=== PATIENT | female | born 1950 | race Caucasian/White ===

== ENCOUNTER 2017-09-28 07:36 | Day surgery (SDC) | payer MEDICARE ==
[2017-09-27 13:07] VITALS: BMI 25.4
[2017-09-28] MEDS ORDERED: Oxymetazoline HCl 0.05% ( 15 ML ) ONE ×2 (09:27→10:11)
[2017-09-28] MEDS ORDERED: Scopolamine 1.5 mg/72 hour Patch ONE (09:48)
[2017-09-28 09:50] LABS: Hemoglobin 12.6 g/dL (12.0-16.0)
[2017-09-28 10:02] LABS: Anion Gap 11 mmol/L (10-20); BUN (Urea Nitrogen) 14 mg/dL (9.8-20.1); Calc. Creatinine Clearance 64 mL/min (70-130); Calcium 9.1 mg/dL (7.8-10.44); Carbon Dioxide 29 mmol/L (23-31); Chloride 105 mmol/L (98-107); Estimated GFR-MDRD 64; Glucose 88 mg/dL (80-115); Potassium 3.8 mmol/L (3.5-5.1); Sodium 141 mmol/L (136-145)
[2017-09-28] MEDS ORDERED: Lidocaine 1% w/Epinephrine 1:200K 30 ML VIAL ONE (10:10)
[2017-09-28] MEDS ORDERED: Bacitracin Zinc Ointment 30 gm TUBE ONE (10:11)
[2017-09-28] MEDS ORDERED: Fentanyl 100 MCG/2 ML VIAL ONE ×2 (10:17→11:40)
[2017-09-28] MEDS ORDERED: Fentanyl 250 MCG/5 ML VIAL ONE (10:18)
[2017-09-28] MEDS ORDERED: Hydrocodone-Acetamin 15 ML UDCUP ONE (13:47)
[2017-09-28] MEDS ORDERED: Dexamethasone 20 MG/5 ML VIAL ONE (16:15)
[2017-09-28] MEDS ORDERED: Propofol 200 MG/20 ML VIAL ONE (16:15)
[2017-09-28] MEDS ORDERED: Lidocaine 1% PF 5 ML VIAL ONE (16:15)
[2017-09-28] MEDS ORDERED: Ondansetron HCl/PF 4 MG/2 ML Vial ONE (16:15)
--- NOTE | 2017-09-28 19:05 | EKG ---
Test Reason : PREOP Blood Pressure : / mmHG Vent. Rate : 072 BPM Atrial Rate : 072 BPM P-R Int : 146 ms QRS Dur : 080 ms QT Int : 410 ms P-R-T Axes : 028 028 047 degrees QTc Int : 448 ms Normal sinus rhythm Nonspecific ST abnormality Abnormal ECG No previous ECGs available Confirmed by DR. Azeb GILL ([id number]) on 09/28/2017 7:05:02 PM Referred By: Heidi SABA Confirmed By:DR. Azeb GILL
--- NOTE | 2017-09-29 14:57 | OP ---
DATE OF PROCEDURE: 09/28/2017 PREOPERATIVE DIAGNOSES: 1. Chronic rhinosinusitis. 2. Allergic fungal sinusitis. 3. Bilateral inferior turbinate hypertrophy. 4. Nasal obstruction. POSTOPERATIVE DIAGNOSES: 1. Chronic rhinosinusitis. 2. Allergic fungal sinusitis. 3. Bilateral inferior turbinate hypertrophy. 4. Nasal obstruction. PROCEDURES: 1. Bilateral endoscopic sinus surgery, total ethmoidectomies. 2. Bilateral endoscopic sinus surgery, maxillary antrostomies. 3. Bilateral endoscopic sinus surgery, frontal sinusotomies. 4. Bilateral endoscopic sinus surgery, sphenoidotomies. 5. Bilateral inferior turbinate submucosal resection. SURGEON: Lazaro Mckeon M.D. ESTIMATED BLOOD LOSS: 50 mL COMPLICATIONS: None. ANESTHESIA: GETA. DESCRIPTION OF PROCEDURE: The patient was taken to the operating room and placed supine on table. G eneral endotracheal anesthesia was obtained by the Anesthesia staff. Tube was secured in the left lo wer lip. The patient was placed in the beach chair position. Afrin pledgets placed in the nose. Fo llowing this, the patient was prepped and draped for standard nasal procedure. Afrin pledgets were r emoved. 0 degree endoscope was advanced in the nasal cavity. 1% lidocaine with 1:100,000 epinephrin e was injected via a 27-gauge needle in the inferior turbinates, middle turbinates and lateral nasal wall bilaterally. Following this, the 0 degree scope was advanced into the nasal cavity. The middle turbinates were gently medialized and the uncinate process was identified bilaterally. Following th is, the uncinate process was anteriorly fractured using ball-ended probe and it was removed bilateral ly using the straight microdebrider and upbiting Blakesley forceps. Following this, the ball-ended p robe was used to gently palpate and identify the natural maxillary sinus ostia. This area was then w idened using a straight Blakesley forceps and the microdebrider. Following this, the ethmoidal bulla was identified and was punctured on its medial and inferior aspect and was removed using the microde brider. Following this, the grand lamella was identified and was punctured into the posterior ethmoi mally cells. Working from posterior to anterior, the ethmoidal cells were opened in a mucosal-sparing technique. Through the previous ethmoidectomies, the sphenoidotomies were then created bilaterally. The attachment of the superior turbinate to the posterior nasal wall was identified. Staying just m edial and inferior this, the sphenoid sinus ostia was punctured using the 0 degree microdebrider and sphenoidotomies were created medially and inferiorly with the microdebrider. Following this, the 45 degree scope and the upbiting microdebrider were used to further open the frontal recess cells as wel l to visualize the natural frontal sinus ostia. On the left side, there is allergic fungal debris an d mucin that was impacted into the entire left frontal sinus. frontal sinus ostia were widened using the 40 degree microdebrider. The straight curved suctions were used to irrigate and suction a ll fungal debris from the frontal sinus area. Following this, inferior turbinates were punctured on the anterior and inferior aspect with the submucosal microdebrider and submucosal resection was perfo rmed bilaterally. Following this, the nasal cavity was irrigated. Meropacks were placed in the midd le meatus. The patient tolerated the procedure well.
[2017-10-01 14:16] LABS: Fungus Stain Final report (.)
== END 2017-09-28 14:20 | disposition home or self-care (01) ==
LOC: SDC 07:36
PROVIDERS: ATTEND Otolaryngology Plastic Surgery within the Head & Neck
PROC: 09TL8ZZ Resection of Nasal Turbinate, Via Natural or Artificial Opening Endoscopic (ICD-10-PCS; principal; 2017-09-28)
PROC: 099T8ZZ Drainage of Left Frontal Sinus, Via Natural or Artificial Opening Endoscopic (ICD-10-PCS; 2017-09-28)
PROC: 099W8ZZ Drainage of Right Sphenoid Sinus, Via Natural or Artificial Opening Endoscopic (ICD-10-PCS; 2017-09-28)
PROC: 099X8ZZ Drainage of Left Sphenoid Sinus, Via Natural or Artificial Opening Endoscopic (ICD-10-PCS; 2017-09-28)
PROC: 099Q8ZZ Drainage of Right Maxillary Sinus, Via Natural or Artificial Opening Endoscopic (ICD-10-PCS; 2017-09-28)
PROC: 099R8ZZ Drainage of Left Maxillary Sinus, Via Natural or Artificial Opening Endoscopic (ICD-10-PCS; 2017-09-28)
PROC: 099S8ZZ Drainage of Right Frontal Sinus, Via Natural or Artificial Opening Endoscopic (ICD-10-PCS; 2017-09-28)
PROC: 09TV8ZZ Resection of Left Ethmoid Sinus, Via Natural or Artificial Opening Endoscopic (ICD-10-PCS; 2017-09-28)
PROC: 09TU8ZZ Resection of Right Ethmoid Sinus, Via Natural or Artificial Opening Endoscopic (ICD-10-PCS; 2017-09-28)
DX: J32.4 Chronic pansinusitis (principal); J30.89 Other allergic rhinitis; J34.3 Hypertrophy of nasal turbinates; J34.89 Other specified disorders of nose and nasal sinuses; B95.61 Methicillin susceptible Staphylococcus aureus infection as the cause of diseases classified elsewhere; G35 Multiple sclerosis; F32.9 Major depressive disorder, single episode, unspecified; F41.9 Anxiety disorder, unspecified; Z87.891 Personal history of nicotine dependence; Z79.2 Long term (current) use of antibiotics; Z79.899 Other long term (current) drug therapy
CPT/HCPCS: 36415; 80048; 85014; 85018; 87070; 87077; 87102; 87186; 87205; 87206; 93005; 93010; 96374; J1100; J2001; J2405; J2704; J3010